=== PATIENT | male | born 1950 | race Caucasian/White ===

== ENCOUNTER 2018-08-30 20:57 | Inpatient (IN) | payer OTHER ==
[~2018-08-30] VITALS: Ht 170.2 cm; Wt 94.3 kg
[~2018-08-30 20:57] MED LIST: DEPO-TESTO200 MG/1 M IM; DILTIAZEM 24HR360 MG PO; FISH OIL 1,2001 EAC4 PO; IBUPROFEN 800800 M1 PO; SIMVASTATIN40 MG PO; TAMSULOSIN HCL0.4 MG PO
[2018-08-30 20:59] VITALS: BP 224/106
[2018-08-30] MEDS ORDERED: METOPROLOL SUCC50 MG PO (21:07)
[2018-08-30] MEDS ORDERED: OMEPRAZOLE40 MG PO (21:08)
[2018-08-30] MEDS ORDERED: METFORMIN HCL500 MG PO (21:09)
[2018-08-30] MEDS ORDERED: ASPIR-TRIN325 MG PO (21:11)
[2018-08-30 21:16] LABS: ABSOLUTE BASOPHILS 0.1 thou/uL (0.0-0.2); ABSOLUTE EOSINOPHILS 0.2 thou/uL (0.0-0.7); ABSOLUTE LYMPHOCYTES 2.7 thou/uL (0.8-5.3); ABSOLUTE MONOCYTES 1.1 thou/uL (0.0-1.2); ABSOLUTE NEUTROPHILS 9.2 thou/uL (1.6-8.1); BASOPHILS 0.8 %; EOSINOPHILS 1.3 %; HEMATOCRIT 45.7 % (42.0-52.0); HEMOGLOBIN 15.1 gm/dL (14.0-18.0); LYMPHOCYTES 20.2 %; MCH 31.2 pg (26.0-34.0); MCHC 33.1 g/dL (28.0-37.0); MCV 94.3 fL (80.0-100.0); MONOCYTES 8.2 %; MPV 8.4 fl. (7.2-11.1); NUCLEATED RBCS 0 /100WBC; PLATELET COUNT* 354 thou/uL (150-400); POLYS 69.5 %; RBC 4.85 mil/uL (4.50-6.00); RDW-CV 14.6 % (10.5-14.5); WBC 13.2 thou/uL (4.0-11.0)
[2018-08-30 21:24] LABS: ANION GAP 15 mmol/L (7-16); BUN 11 mg/dL (7-18); CALCIUM 8.4 mg/dL (8.5-10.1); CHLORIDE 105 mmol/L (98-107); CO2 22 mmol/L (21-32); CREATININE 0.9 mg/dL (0.6-1.3); GLUCOSE 141 mg/dL (70-99); POTASSIUM 3.6 mmol/L (3.5-5.1); SODIUM 142 mmol/L (136-145)
[2018-08-30 21:26] LABS: PROTIME 10.4 Seconds (9.20-11.50)
[2018-08-30 21:35] LABS: ALBUMIN 3.7 g/dL (3.4-5.0); ALKALINE PHOSPHATASE 79 U/L (46-116); NT-PRO BRAIN NAT PEPTIDE 4812 pg/mL (<300); SGOT 17 U/L (15-37); SGPT 24 U/L (30-65); TOTAL BILIRUBIN 0.3 mg/dL (<0.1-1.0); TOTAL PROTEIN 7.7 g/dL (6.4-8.2); TROPONIN-I LEVEL <0.06 ng/mL (<0.06)
[2018-08-30 21:48] LABS: INFLUENZA A ANTIGEN None Detected (None Detect); INFLUENZA B ANTIGEN None Detected (None Detect)
[2018-08-30 23:54] LABS: URINE BILIRUBIN NEGATIVE (Negative); URINE BLOOD NEGATIVE (Negative); URINE CLARITY CLEAR; URINE COLOR YELLOW; URINE GLUCOSE-RANDOM TRACE (Negative); URINE KETONES NEGATIVE (Negative); URINE LEUKOCYTES-REFLEX NEGATIVE (Negative); URINE NITRITE-REFLEX NEGATIVE (Negative); URINE PROTEIN 2+ (Negative); URINE SPECIFIC GRAVITY 1.015 (1.005-1.030); URINE UROBILINOGEN 0.2 E.U./dl (0.2-1.0)
[2018-08-31 00:01] VITALS: BP 133/54
[2018-08-31 00:02] LABS: BACTERIA-REFLEX None Seen /HPF (None Seen); CASTS None Seen /LPF (None Seen); CRYSTALS None Seen /LPF (None Seen); MUCUS 0-3 Light strn/LPF (None Seen); SQUAMOUS NONE SEEN /LPF (0-3); URINE RBC None Seen /HPF (0-2); URINE WBC-REFLEX 0-5 Rare /HPF (0-5)
[2018-08-31 00:19] VITALS: BP 123/72
[2018-08-31] MEDS ORDERED: METFORMIN HCL500 MG PO (00:39)
[2018-08-31] MEDS ORDERED: TESTOSTERO200 MG/1 M IM (00:41)
[2018-08-31] MEDS ORDERED: TRAMADOL 50 MG50 MG PO (00:42)
[2018-08-31] MEDS ORDERED: MOBIC15 MG PO (00:46)
[2018-08-31] MEDS ORDERED: PROSCAR 5MG TABL5 MG PO (00:46)
[2018-08-31 07:30] VITALS: BP 139/70
[2018-08-31 12:00] VITALS: BP 133/62
--- NOTE | 2018-08-31 12:17 | EKG ---
[place] [address] ELECTROCARDIOGRAM REPORT Name: SILVER OLIVIA Room: [place] [address] ADM IN M.R.#: [id number] Admission: 08/30/18 Attend Phys: Meliton Gregory MD Discharge: Date of : 52 Report #: [id number] THIS REPORT FOR: //name// [facility] ED Test Date: 2018-08-30 Test Time: 21:39:30 Pat Name: SILVER OLIVIA Department: Room: [facility] Gender: M Data Entry Analyst: [facility] : 1950 Requested By: Kamille Pascual Order Number: [id number] MD: Chandana Browne Measurements Intervals [place] Rate: 97 P: 54 RI: 190 QRS: -47 QRSD: 126 T: 120 QT: 380 QTc: 483 Interpretive Statements Sinus rhythm Probable left atrial enlargement LVH with IVCD, LAD and secondary repol abnrm ST elevation suggests acute pericarditis Borderline prolonged QT interval Compared to ECG 10/28/2006 08:47:39 Intraventricular conduction delay now present Left ventricular hypertrophy now present Early repolarization now present ST (T wave) deviation now present Sinus arrhythmia no longer present Electronically Signed On 08-31-2018 12:17:14 TUMBLER PLATER by Chandana Browne [email or web address] <ELECTRONICALLY SIGNED> By: Chandana Browne MD, [facility] 08/31/18 1217 38 38 Chandana Browne MD, FAC /EPI
[2018-08-31 16:00] VITALS: BP 144/70
[2018-08-31 20:30] VITALS: BP 155/68
[2018-09-01] VITALS: BP 148/82
[2018-09-01 04:00] VITALS: BP 142/77
[2018-09-01 04:05] LABS: HEMATOCRIT 39.5 % (42.0-52.0); MCH 31.4 pg (26.0-34.0); MCHC 33.2 g/dL (28.0-37.0); MCV 94.6 fL (80.0-100.0); MPV 8.7 fl. (7.2-11.1); RBC 4.17 mil/uL (4.50-6.00); RDW-CV 14.7 % (10.5-14.5); WBC 11.9 thou/uL (4.0-11.0)
[2018-09-01 04:12] LABS: HEMOGLOBIN 13.1 gm/dL (14.0-18.0)
[2018-09-01 04:13] LABS: CALCIUM 8.5 mg/dL (8.5-10.1); CREATININE 0.7 mg/dL (0.6-1.3); MAGNESIUM 2.2 mg/dL (1.8-2.4); POTASSIUM 3.5 mmol/L (3.5-5.1)
[2018-09-01 08:10] VITALS: BP 163/96
--- NOTE | 2018-09-01 13:36 | CON ---
[address] [address] CONSULTATION Name: SILVER OLIVIA Room: [address] IN .R.#: [id number] Admission: 08/30/18 Attend Phys: Meliton Gregory MD Discharge: Date of : 52 Report #: [id number] THIS REPORT FOR: //name// CC: Carmelo Gregory REASON FOR CONSULTATION: Respiratory failure, COPD. HISTORY OF PRESENT ILLNESS: This is a 67-year-old male patient with a background history of smoking and history of COPD, on albuterol inhaler as needed. Also a couple of weeks ago, he was given the new inhaler Trelegy, although he did not use it. He is not on any oxygen at home. He has history also of myocardial infarction a few years ago. He follows Dr. Jennings from Cardiology. He told me he was doing fairly well until around 3 days ago when he woke up from sleep on Saturday with some increased shortness of breath. Slowly his breathing got worse during the day and at night, he developed a sense of shortness of breath while sitting. He was not able to talk even on the phone. He just used one word, yes and no, that was associated with wheezes and cough and he felt "my lung is filling up with something." He has a 40-pack history of smoking and he slowed down for the last 4 years. He presented to the Emergency Room, found to have increased vascular congestion and picture of congestive heart failure. He was given a dose of IV Lasix and admitted. Over the course of hospitalization, his O2 needs improved slowly and this morning, he was on room air. He still feels some shortness of breath with ambulation, but reporting significant improvement. He does not have any wheezing anymore. His cough is minimal and he is not producing any sputum. He denied any sick contact or recent travel. He denied any lower extremity edema or pain or calf tenderness. PAST MEDICAL HISTORY: Include coronary artery disease, hypertension, cervical spine stenosis with radiculopathy, history of VT and stent back in 2002, hyperlipidemia and COPD, although he is not on oxygen. PAST SURGICAL HISTORY: Knee scope, vasectomy. SOCIAL HISTORY: He has a 95-blwp-hlnt history of smoking. He slowed down on her smoking for the last 4 years, according to ____ he smoked here and there. He drinks alcohol once a week. No excessive alcohol use. No drug abuse. HOME MEDICATIONS: He is on Zocor, metoprolol, omeprazole, aspirin, metformin, testosterone, tramadol, meloxicam, finasteride and ibuprofen in addition to Trelegy that he did not use, but he also has albuterol that he uses couple to 3 times a week. REVIEW OF SYSTEMS: Twelve-point review of systems was reviewed with the patient and negative other [place] [address] CONSULTATION Name: NESILVER Room: [address] IN [facility]#: [id number] Admission: 08/30/18 Attend Phys: Meliton Gregory MD Discharge: Date of : 52 Report #: [id number] PHYSICAL EXAMINATION: VITAL SIGNS: Today, he is on room air with saturation 96%. His blood pressure is 163/96, pulse rate of 83, temperature 36.7. GENERAL: The patient is sitting in bed. Speaks in full sentences, no distress. HEENT: Head is normocephalic, atraumatic. Pupils reactive to light, not pale, not jaundiced. External ear looks healthy and normal. Oral cavity, moist mucous membrane with Mallampati of 2. NECK: Full range of movement, nontender, no palpable lymph node. CHEST: Diminished air movement bilaterally. No definite wheezes, no crackles, no rhonchi. HEART: S1, S2, no murmur. ABDOMEN: Benign, soft, lax, nontender, positive bowel sounds. No masses felt. No rigidity. EXTREMITIES: Lower extremities: No edema, no calf tenderness. SKIN: Normal for age and race. LYMPHATICS: No swollen lymph node. PSYCHIATRIC: Mood and affect appropriate. Good insight and judgment. NEUROLOGIC: Moving all 4 extremities spontaneously. No focal weakness. Cranial nerves grossly normal. LABORATORY DATA: He had a chest x-ray in the ER that demonstrated bilateral lower lobe infiltrate versus atelectasis and signs of vascular congestion. His CT of the chest was negative for PE, but demonstrated infiltrates, mostly on the right lower lobe, but also seen bilateral lung and signs of vascular congestion with bilateral pleural effusion. His white blood count is 13.2, hemoglobin 15.1, platelets 354. His creatinine is 0.7 with a BUN of 15, chloride 103, potassium 3.5, sodium 140. His BNP was 4812. INR of 1. D-dimer was elevated and influenza A and B screen was negative. IMPRESSION: 1. Acute hypoxic respiratory failure. 2. Pulmonary infiltrate. 3. Congestive heart failure. 4. Pulmonary edema. 5. Bilateral pleural effusion. 6. Coronary artery disease. 7. Possible pneumonia. 8. Chronic obstructive pulmonary disease. PLAN: At this point, I agree with the cardiac evaluation. He needs an echocardiogram. I would recommend to continue the nebulization treatment. He is currently on steroids IV twice a day, would continue those for now to optimize his lung function and taper at the time [place] [address] CONSULTATION Name: SILVER OLIVIA Room: [address] IN .R.#: [id number] Admission: 08/30/18 Attend Phys: Meliton Gregory MD Discharge: Date of : 52 Report #: [id number] antibiotic as you are doing at this point. He needs a followup chest imaging. We will follow along with you. Thank you for the consult. I did discuss with the patient the fact that he has a pleural effusion, is most likely related to his congestive heart failure and typically the treatment as directed toward underlying disease. Usually, we do not proceed with thoracentesis till optimizing his medical management. Thank you for the consult. <ELECTRONICALLY SIGNED> By: Alva Gimenez MD 09/01/18 1336 1024 1150Alva Gimenez MD /nt
--- NOTE | 2018-09-01 14:15 | 2DMMODE ---
[place] [address] 2 D/M-MODE ECHOCARDIOGRAM Name: SILVER OLIVIA Room: [address] IN [facility]#: [id number] Admission: 08/30/18 Attend Phys: Meliton Gregory, Discharge: Date of : 52 Date of Service: 09/01/18 1415 Report #: [id number] THIS REPORT FOR: //name// APPROVED REPORT Study performed: 09/01/2018 10:13:22 EXAM: Comprehensive 2D, Doppler, and color-flow Echocardiogram Patient Location: In-Patient Room #: [facility] Status: routine BSA: 1.99 HR: 84 bpm BP: 167/86 mmHg Other Information Study Quality: Good Indications Dyspnea 2D Dimensions IVSd: 14.15 (7-11mm) LVOT Diam: 20.01 (18-24mm) LVDd: 58.55 mm PWd: 12.37 (7-11mm) Ascending Ao: 26.98 (22-36mm) LVDs: 45.69 (25-40mm) Aortic Root: 27.79 mm Volumes Left Atrial Volume (Systole) LA ESV Index: 31.10 mL/m2 Aortic Valve AoV Peak Sadiq.: 2.29 m/s AO Peak Gr.: 20.90 mmHg LVOT Max P.67 mmHg AO Mean Gr.: 12.80 mmHg LVOT Mean P.27 mmHg LVOT Max V: 0.82 m/s AO V2 VTI: 44.61 cm LVOT Mean V: 0.52 m/s SUSANA (VTI): 0.92 cm2 LVOT V1 VTI: 13.03 cm Mitral Valve E/A Ratio: 2.64 MV Decel. Time: 132.60 ms MV E Max Sadiq.: 1.38 m/s MV PHT: 38.46 [place] [address] 2 D/M-MODE ECHOCARDIOGRAM Name: SILVER OLIVIA Room: [address] IN [facility]#: [id number] Admission: 08/30/18 Attend Phys: Meliton Gregory, Discharge: Date of : 52 Date of Service: 09/01/18 1415 Report #: [id number] MVA (PHT): 5.72 cm2 TDI E/Lateral E': 17.25 E/Medial E': 23.00 Medial E' Sadiq.: 0.06 m/s Lateral E' Sadiq.: 0.08 m/s Pulmonary Valve PV Peak Sadiq.: 1.04 m/s PV Peak Gr.: 4.34 mmHg Tricuspid Valve RAP Estimate: 5.00 mmHg TR Peak Gr.: 29.71 mmHg RVSP: 34.71 mmHg PA Pressure: 34.71 mmHg Left Ventricle Left ventricle is mildly dilated. There is severe diffuse hypokinesis of left ventricular wall motion. Borderline concentric left ventricular hypertrophy. Left ventricular ejection fraction is severely decreased. LVEF is 25%. The left ventricular diastolic function is normal. Right Ventricle The right ventricle is normal size. The right ventricular systolic function is normal. Atria The left atrium size is normal. The right atrium size is normal. Aortic Valve Aortic valve is mildly calcified. No aortic regurgitation is present. Mild aortic stenosis. Mitral Valve The mitral valve is normal in structure. Mild mitral regurgitation. No evidence of mitral valve stenosis. Tricuspid Valve The tricuspid valve is normal in structure. Mild tricuspid regurgitation. Pulmonic Valve The pulmonary valve is normal in structure. There is no pulmon[place] [address] 2 D/M-MODE ECHOCARDIOGRAM Name: SILVER OLIVIA Room: [address]#: [id number] Admission: 08/30/18 Attend Phys: Meliton Gregory, Discharge: Date of : 52 Date of Service: 09/01/18 1415 Report #: [id number] Great Vessels The aortic root is normal in size. IVC is normal in size and collapses >50% with inspiration. Pericardium There is no pericardial effusion. <Conclusion> Left ventricle is mildly dilated. Borderline concentric left ventricular hypertrophy. Left ventricular ejection fraction is severely decreased. LVEF is 25%. The left ventricular diastolic function is normal. The right ventricle is normal size. The left atrium size is normal. Aortic valve is mildly calcified. No aortic regurgitation is present. Mild aortic stenosis. The mitral valve is normal in structure. Mild mitral regurgitation. The tricuspid valve is normal in structure. Mild tricuspid regurgitation. IVC is normal in size and collapses >50% with inspiration. There is no pericardial effusion. There is severe diffuse hypokinesis of left ventricular wall motion. <ELECTRONICALLY SIGNED> By: Matias Vail MD, FACC 09/01/18 1415 1415 1415 Matias Vail MD, FACC /INF
[2018-09-01 16:00] VITALS: BP 133/75
[2018-09-01 20:33] VITALS: BP 139/83
[2018-09-02 04:14] LABS: HEMATOCRIT 40.5 % (42.0-52.0); HEMOGLOBIN 13.3 gm/dL (14.0-18.0); MCH 31.2 pg (26.0-34.0); MCV 94.6 fL (80.0-100.0); MPV 8.8 fl. (7.2-11.1); NUCLEATED RBCS 0 /100WBC; PLATELET COUNT* 293 thou/uL (150-400); RBC 4.28 mil/uL (4.50-6.00); RDW-CV 14.4 % (10.5-14.5); WBC 9.8 thou/uL (4.0-11.0)
[2018-09-02 04:48] LABS: ALBUMIN 3.3 g/dL (3.4-5.0); CALCIUM 8.6 mg/dL (8.5-10.1); CREATININE 0.8 mg/dL (0.6-1.3); TOTAL BILIRUBIN 0.4 mg/dL (<0.1-1.0); TOTAL PROTEIN 7.1 g/dL (6.4-8.2)
[2018-09-02 05:02] LABS: POTASSIUM 4.5 mmol/L (3.5-5.1)
[2018-09-02 07:05] LABS: ABSOLUTE MONOCYTES 0.1 thou/uL (0.0-1.2); ABSOLUTE NEUTROPHILS 8.7 thou/uL (1.6-8.1); ANISOCYTOSIS 1+; PLATELET ESTIMATE ADEQUATE; POIKILOCYTOSIS 1+
[2018-09-02 07:30] VITALS: BP 124/76
[2018-09-02 16:00] VITALS: BP 142/74
--- NOTE | 2018-09-02 16:26 | CON ---
[address] [address] CONSULTATION Name: SILVER OLIVIA Room: [address] IN M.R.#: [id number] Admission: 08/30/18 Attend Phys: Meliton Gregory MD Discharge: Date of : 52 Report #: [id number] THIS REPORT FOR: //name// CC: Carmelo Gregory DATE OF SERVICE: 09/01/2018 LOCATION: The patient in room 105. Thank you for allowing me to see the patient in cardiovascular assessment. HISTORY OF PRESENT ILLNESS: As you know, he is a very pleasant 67-year-old male with a history of tobacco habituation and associated chronic obstructive pulmonary disease. He also has a history of coronary artery disease status post remote myocardial infarction and stenting in 2002. During the preceding several days, he noted an increase in shortness of breath, which worsened markedly on Saturday evening to the point where he was markedly dyspneic and mildly diaphoretic. He denied associated chest pain. He was brought to the [facility] at that time and was felt to have acute respiratory and cardiac failure with a central volume access and an exacerbation of his bronchoconstrictive pulmonary disease. The patient was treated with steroids and IV bronchodilators as well as antibiotics and IV Lasix. Since then, there has been a gradual improvement in his dyspnea to the point where he is nearly normal, though he feels mildly dyspneic compared to his norm. There has never been chest discomfort, no enzymatic evidence to suggest acute myocardial injury. He has been treated with multiple antibiotics, steroids, and parenteral diuresis. He has been continued on beta blockade in the form of Toprol-XL 50 mg daily. He was initially hypertensive in the ER, the pressure is gradually diminished to high normal range. PRIOR MEDICATIONS: Have included diltiazem, ibuprofen, meloxicam, metformin, simvastatin, Cialis, and tramadol. He has also been on a beta zaheer in the form of Toprol-XL. SOCIAL HISTORY: The patient has a significant [place] [address] CONSULTATION Name: SILVER OLIVIA Room: [address] IN [facility]#: [id number] Admission: 08/30/18 Attend Phys: Meliton Gregory MD Discharge: Date of : 52 Report #: [id number] PAST MEDICAL HISTORY: Remarkable for chronic obstructive pulmonary disease with prior significant cigarette smoking history, coronary artery disease, hyperlipidemia and modest number of PVCs. REVIEW OF SYSTEMS: Remarkable for the following: PULMONARY: He notes chronic dyspnea and occasional wheezing with a significant prior cigarette smoking history. CARDIAC: There is a history of prior myocardial infarction and prior stenting in 2002. PHYSICAL EXAMINATION: GENERAL: Demonstrates a middle-aged male in no acute distress. VITAL SIGNS: Blood pressure 147/72, pulse rate is 84 and respirations are 18 per minute. NECK: Jugular venous pressure is mildly elevated. CHEST: Reveals slightly decreased breath sounds diffusely with a prolonged expiratory phase; no wheezing is noted. CARDIAC: Reveals normal first and second heart sounds with a soft systolic murmur. ABDOMEN: Soft and nontender. EXTREMITIES: Without edema with intact peripheral pulses and good distal perfusion. There are no deformity or arthritic changes. There is no scleral icterus. HEENT: Oral mucosa is moist and dry. Electrocardiogram reveals sinus rhythm, intraventricular conduction delay with left axis deviation, possible left ventricular hypertrophy. Chemistries remarkable for an NT-BNP 4812. Hemoglobin 13.1, white blood cell count 11,900 with 288,000 platelets. Sodium 140, potassium 3.5, BUN 15, creatinine 0.7. Troponin less than 0.06. Initial NT-BNP 4812. Glucose is 141 and 163. Chest radiograph today demonstrates mild pulmonary venous hypertension without evidence for significant heart failure. Echocardiogram is reviewed and demonstrates mild left ventricular cavitary dilatation with severe impairment in global left ventricular systolic function, estimated ejection fraction being 25% with diffuse hypokinesis of left ventricle wall motion. There is mild aortic sclerosis without stenosis and mild mitral regurgitation is noted. IMPRESSION: 1. Acute on chronic congestive heart failure, which is predominantly systolic. 2. Chronic obstructive pulmonary disease with exacerbation. 3. [place] [address] CONSULTATION Name: IVANIASILVER PRASAD Room: [address] IN [facility]#: [id number] Admission: 08/30/18 Attend Phys: Meliton Gregory MD Discharge: Date of : 52 Report #: [id number] 4. Coronary artery disease, status post prior myocardial infarction and prior stenting. RECOMMENDATIONS: 1. Continued modest diuresis in the form of Lasix 40 mg daily. 2. Would recommend an outpatient modification in his heart failure medicines with a change from metoprolol succinate to carvedilol with commencement of Entresto with low dosage; we plan to do this as an outpatient after discussing with Dr. Jennings. 3. Continued therapy directed at his bronchoconstrictive pulmonary disease. The above issues were discussed in detail with the patient and we will review the case with Dr. Jennings, who follows the patient on a long-term basis. <ELECTRONICALLY SIGNED> By: Matias Vail MD, FACC 09/02/18 1626 1521 1822Matias Vail MD, FACC /nt
--- NOTE | 2018-09-02 16:51 | EKG ---
[place] [address] ELECTROCARDIOGRAM REPORT Name: SILVER OLIVIA Room: [address] ADM IN M.R.#: [id number] Admission: 08/30/18 Attend Phys: Meliton Gregory MD Discharge: Date of : 52 Report #: [id number] THIS REPORT FOR: //name// [facility] Test Date: 2018-09-02 Test Time: 15:48:21 Pat Name: SILVER OLIVIA Department: Room: [address] Gender: M Handbag Stitcher: NICKO : 1950 Requested By: Matias Vail Order Number: [id number] Reading MD: Sly Jennings Measurements Intervals [place] Rate: 81 P: 39 [place]: 169 QRS: -45 QRSD: 121 T: 142 QT: 408 QTc: 474 Interpretive Statements Sinus rhythm Probable left atrial enlargement LVH with IVCD, LAD and secondary repol abnrm Anterior ST elevation, probably due to LVH Compared to ECG 08/30/2018 21:39:30 No significant changes Electronically Signed On 09-02-2018 16:51:32 DELINQUENT NOTICE MACHINE OPERATOR by Sly Jennings [email or web address] <ELECTRONICALLY SIGNED> By: Sly Jennings MD, FACC 09/02/18 1651 1548 1548 Sly Jennings MD, FACC /EPI
[2018-09-02 20:00] VITALS: BP 153/84
[2018-09-03] VITALS (13 sets, daily range): BP systolic 119–157; BP diastolic 62–85
[2018-09-03 04:21] LABS: CALCIUM 8.9 mg/dL (8.5-10.1); CREATININE 0.8 mg/dL (0.6-1.3); POTASSIUM 4.1 mmol/L (3.5-5.1)
[2018-09-04] VITALS: BP 139/81
[2018-09-04 04:00] VITALS: BP 143/93
[2018-09-04 04:07] LABS: CREATININE 0.8 mg/dL (0.6-1.3); POTASSIUM 4.2 mmol/L (3.5-5.1)
[2018-09-04 07:55] VITALS: BP 143/97
[2018-09-04 15:45] VITALS: BP 137/78
[2018-09-04 20:00] VITALS: BP 129/81
[2018-09-05 08:40] VITALS: BP 120/88
[2018-09-05 08:55] VITALS: BP 120/88
--- NOTE | 2018-09-05 11:32 | CARD ---
[address] [address] CARDIAC CATH REPORT Name: SILVER OLIVIA Room: [address] IN [facility]#: [id number] Admission: 08/30/18 Attend Phys: Meliton Gregory MD Discharge: Date of : 52 Report #: [id number] THIS REPORT FOR: //name// APPROVED REPORT Study performed: 09/03/2018 12:42:50 Patient Details Patient Status: In-Patient Room #: 105 The patient is a 67 year-old male Event Personnel Mtaias Vail Panel Assembler, Celia Amezcua, Artemio Mirza Parks, Tina RN Filter Changing Technician Procedures Performed Art Access - R radial artery , Selective Right and Left Coronary AngiographyLeft Heart Cath w/or w/o Coronaries [id number] [facility] , Left Ventriculogram Indication Cardiomyopathy Risk Factors Hypercholesterolemia, Hypertension Previous Procedures/Diagnoses Previous PCI Admission/Lab Medications/Medications given during procedure Heparin Unfract. Procedure Narrative The patient was brought electively to the Cardiac Catheterization Laboratory and was prepped and draped in a sterile manner. The right wrist was infiltrated with 2% Lidocaine subcutaneous anesthesia. A Slender Glidesheath sheath was inserted into the right radial artery. Coronary angiography was performed using coronary diagnostic catheters. The right coronary system was accessed and visualized with a 3DRC 6fr catheter. The left coronary system was accessed and visualized with a 6fr DxTerity TRA catheter. The left ventricle was accessed and visualized with a PC: Pig 6fr catheter. Left ventricular/Aortic Valve gradient assessed via catheter pullback. Left ventriculogram was performed in ELENA projection. The patient tolerated the procedure well and [place] [address] CARDIAC CATH REPORT Name: SILVER OLIVIA Aishwarya Room: [address] IN [facility]#: [id number] Admission: 08/30/18 Attend Phys: Meliton Gregory MD Discharge: Date of : 52 Report #: [id number] associated with the procedure. Intraoperative Conscious Sedation Sedation start time: 13:25 Case end Time: 13:49 Fentanyl 25 mcg Versed 2 mg Fluoro Time: 7.2 minutes Dose: DAP 90117 cGycm2 1270.53 mGy Contrast Type and Amount: Visipaque 100 ml Coronary Angiography The patient's coronary anatomy is left dominant. Diagnostic Cath Left Main 0% narrowing LAD 30 Percent proximal with 40% mid LAD narrowing and 30% narrowing of the proximal portion of the first diagonal branch Circumflex 40% mid vessel narrowing and 40% narrowing of the distal circumflex Right Coronary Small nondominant vessel with widely patent proximal stent Left Ventriculography The left ventricle is moderately dilatedmoderately dilated in size with contractility. The left ventricular ejection fraction is estimated to be 25%. There is no mitral insufficiency. There is severe diffuse hypokinesis of left ventricular wall motion Hemodynamics The aortic pressure is 122/72 mmHg with a mean of mmHg. The left ventricular pressure is 130/16 mmHg with a mean of mmHg. The left ventricular end diastolic pressure is 41 mmHg. There was no gradient across the aortic valve upon pullback. Conclusion #1 modest coronary artery disease characterized by the following: A 0% left main coronary artery narrowing B 30% proximal 40% mid LAD narrowing with 30% proximal first diagonal narrowing C nondominant right coronary artery with a widely [place] [address] CARDIAC CATH REPORT Name: SILVER OLIVIA Room: [address] IN ..#: [id number] Admission: 08/30/18 Attend Phys: Meliton Gregory MD Discharge: Date of : 52 Report #: [id number] Large dominant circumflex coronary artery with 40% mid and distal narrowings #2 moderate left ventricular cavitary dilatation with severe reduction in global left ventricular systolic function, estimated ejection fraction 25% #3 severe elevation of left ventricular end-diastolic pressure at rest Recommendations Aggressive Medical Therapy Diagnostic Cath Approved by: Matias Vail MD Date/Time: 09/05/2018 11:31:57 <ELECTRONICALLY SIGNED> By: Matias Vail MD, [facility] 09/05/18 1132 1132 1132Jotana Vail MD, FACC /INF
[2018-09-05] MEDS ORDERED: POTASSIUM20 PO (12:29)
[2018-09-05] MEDS ORDERED: PREDNISONE 10 M10 MG PO (12:32)
[2018-09-05] MEDS ORDERED: CEFDINIR300 MG PO (13:01)
[2018-09-05] MEDS ORDERED: LASIX 40 MG TAB40 M2 PO (13:03)
[2018-09-05] MEDS ORDERED: FLONASE 0.05%50 MCG NASAL (13:03)
[2018-09-05] MEDS ORDERED: GUAIFENESIN ER600 MG PO (13:05)
[2018-09-05] MEDS ORDERED: COZAAR 25 MG TA25 M2 PO (13:06)
== END 2018-09-05 16:00 | disposition home or self-care (01) | DRG 286 ==
LOC: M.ERS 20:57 → M.2W 22:54 → M.TBA-ER 22:54 → M.ORTHSURG 22:54 → M.2W 23:34 → M.ORTHSURG 09-01 07:51
PROVIDERS: Emergency Medicine; Family Medicine; Internal Medicine
PROC: 4A023N7 Measurement of Cardiac Sampling and Pressure, Left Heart, Percutaneous Approach (ICD-10-PCS; principal; 2018-09-03)
PROC: B211YZZ Fluoroscopy of Multiple Coronary Arteries using Other Contrast (ICD-10-PCS; principal; 2018-09-03)
PROC: B215YZZ Fluoroscopy of Left Heart using Other Contrast (ICD-10-PCS; principal; 2018-09-03)
DX: I11.0 Hypertensive heart disease with heart failure (principal); J15.6 Pneumonia due to other Gram-negative bacteria; J96.01 Acute respiratory failure with hypoxia; J44.1 Chronic obstructive pulmonary disease with (acute) exacerbation; J44.0 Chronic obstructive pulmonary disease with (acute) lower respiratory infection; I25.10 Atherosclerotic heart disease of native coronary artery without angina pectoris; I50.43 Acute on chronic combined systolic (congestive) and diastolic (congestive) heart failure; I42.9 Cardiomyopathy, unspecified; E78.00 Pure hypercholesterolemia, unspecified; E78.5 Hyperlipidemia, unspecified; I16.0 Hypertensive urgency; I27.81 Cor pulmonale (chronic); Z98.52 Vasectomy status; I25.2 Old myocardial infarction; Z95.5 Presence of coronary angioplasty implant and graft

== ENCOUNTER → 2019-07-03 | Outpatient (CLI) | payer OTHER ==
[~2019-07-03] MED LIST changes: +ASPIR-TRIN325 MG PO; +CEFDINIR300 MG PO; +COZAAR 25 MG TA25 M2 PO; +FLONASE 0.05%50 MCG NASAL; +GUAIFENESIN ER600 MG PO; +LASIX 40 MG TAB40 M2 PO; +METFORMIN HCL500 MG PO; +METOPROLOL SUCC50 MG PO; +MOBIC15 MG PO; +OMEPRAZOLE40 MG PO; +POTASSIUM20 PO; +PREDNISONE 10 M10 MG PO; +PROSCAR 5MG TABL5 MG PO; +TESTOSTERO200 MG/1 M IM; +TRAMADOL 50 MG50 MG PO
== END ==
LOC: M.MRI 08:28
DX: S83.282A Other tear of lateral meniscus, current injury, left knee, initial encounter (principal); S83.512A Sprain of anterior cruciate ligament of left knee, initial encounter; M17.12 Unilateral primary osteoarthritis, left knee; X58.XXXA Exposure to other specified factors, initial encounter; Y93.89 Activity, other specified; Y92.89 Other specified places as the place of occurrence of the external cause; Y99.8 Other external cause status

== ENCOUNTER 2019-07-28 06:34 | Inpatient (IN) | payer OTHER, SELFPAY ==
[2019-07-16 09:05] LABS: URINE BILIRUBIN NEGATIVE (Negative); URINE BLOOD NEGATIVE (Negative); URINE CLARITY CLEAR; URINE COLOR YELLOW; URINE GLUCOSE-RANDOM NEGATIVE (Negative); URINE KETONES NEGATIVE (Negative); URINE LEUKOCYTES-REFLEX NEGATIVE (Negative); URINE NITRITE-REFLEX NEGATIVE (Negative); URINE PROTEIN NEGATIVE (Negative); URINE SPECIFIC GRAVITY <= 1.005 (1.005-1.030); URINE UROBILINOGEN 0.2 E.U./dl (0.2-1.0)
[2019-07-16 09:07] LABS: HEMATOCRIT 41.1 % (42.0-52.0); HEMOGLOBIN 14.1 gm/dL (14.0-18.0); MCH 33.3 pg (26.0-34.0); MCHC 34.4 g/dL (28.0-37.0); MCV 96.7 fL (80.0-100.0); RBC 4.25 mil/uL (4.50-6.00); RDW-CV 13.7 % (10.5-14.5); WBC 6.3 thou/uL (4.0-11.0)
[2019-07-16 09:13] LABS: PROTIME 10.3 Seconds (9.20-11.50)
[2019-07-16 09:17] LABS: ALBUMIN 4.4 g/dL (3.4-5.0); CALCIUM 9.5 mg/dL (8.5-10.1); CREATININE 0.8 mg/dL (0.6-1.3); POTASSIUM 4.5 mmol/L (3.5-5.1); TOTAL BILIRUBIN 0.5 mg/dL (<0.1-1.0); TOTAL PROTEIN 7.8 g/dL (6.4-8.2)
--- NOTE | 2019-07-16 13:25 | EKG ---
[place] [address] ELECTROCARDIOGRAM REPORT Name: REZAKINGSILVER KENDRICK Room: PRE IN [facility]#: [id number] Admission: Attend Phys: Ezio Sharma Discharge: Date of : 52 Report #: [id number] THIS REPORT FOR: //name// [facility] Test Date: 2019-07-16 Test Time: 09:15:18 Pat Name: SILVER OLIVIA Department: Room: Gender: M Rn Medical Inpatient Services: : 1950 Requested By: Han Melton Order Number: [id number] Reading MD: Sly Jennings Measurements Intervals [place] Rate: 53 P: 64 [place]: 263 QRS: -57 QRSD: 138 T: -11 QT: 433 QTc: 407 Interpretive Statements Sinus rhythm with first-degree AV block Premature ventricular contractions Left bundle branch block Compared to ECG 09/02/2018 15:48:21 Ventricular premature complex(es) now present First degree AV block now present Left bundle-branch block now present Electronically Signed On 07-16-2019 13:25:40 CDT by Sly Jennings [email or web address] <ELECTRONICALLY SIGNED> By: Sly Jennings MD, FACC 07/16/19 1325 4 4 Sly Jennings MD, FACC /EPI
[~2019-07-28] VITALS: Ht 170.2 cm; Wt 85.3 kg
[~2019-07-28 06:34] MED LIST changes: +ENTRESTO 97 MG1 EACH PO; +ESCITALOPRAM OX10 MG PO; +FLOMAX0.4 MG PO; +IBUPROFEN 200200 M1 PO; +LIPITOR40 MG PO; +METOPROLOL SUC200 MG PO; +OMEPRAZOLE 20 M20 M1 PO; +SPIRONOLACTONE25 M1 PO; +TYLENOL325 MG PO
[2019-07-28 09:35] VITALS: BP 163/88
[2019-07-28 15:20] VITALS: BP 127/69
--- NOTE | 2019-07-28 15:46 | NUR ---
ASSESSMENT COMPLETE. PT ADMITTED TO ROOM 305 AT 1445. PT HAD LEFT TOTAL KNEE. PT IS DROWSY, ORIENTED X4. PT DENIES NEED FOR PAIN MEDICATION AT THIS TIME. CAPNO IN PLACE, 2L PER NC. VSS. POLAR PACK IN PLACE. IV IN LEFT FA, SALINE LOCKED. SEE ASSESSMENT AND VITALS FOR OTHER DETAILS. CALL LIGHT WITHIN REACH, WILL CONTINUE PLAN OF CARE
[2019-07-28 20:32] VITALS: BP 138/74
[2019-07-28] MEDS ORDERED: ENTRESTO 97 MG1 EACH (21:26)
[2019-07-28 23:45] VITALS: BP 128/56
[2019-07-29 04:00] VITALS: BP 127/58
[2019-07-29 04:23] LABS: HEMATOCRIT 30.3 % (42.0-52.0)
[2019-07-29 05:41] LABS: URINE BILIRUBIN NEGATIVE (Negative); URINE BLOOD NEGATIVE (Negative); URINE CLARITY CLEAR; URINE COLOR YELLOW; URINE GLUCOSE-RANDOM NEGATIVE (Negative); URINE KETONES NEGATIVE (Negative); URINE LEUKOCYTES-REFLEX NEGATIVE (Negative); URINE NITRITE-REFLEX NEGATIVE (Negative); URINE PROTEIN NEGATIVE (Negative); URINE SPECIFIC GRAVITY <= 1.005 (1.005-1.030); URINE UROBILINOGEN 0.2 E.U./dl (0.2-1.0)
--- NOTE | 2019-07-29 07:50 | NUR ---
ASSUMED CARE OF PATIENT 07/28/19 AT APPROX 1930, PT REMAINED A&OX4 THROUGHOUT SHIFT, PT ON 2L NC AND CAPNO THROUGHOUT SHIFT, PAIN MEDS REQUESTED AND GIVEN ORDERED, URINARY RETENTION NOTED - [place] INSERTED ORDERED, HEMO VAC IN PLACE, PT STATED ON CPM, ASSESSMENTS AND HOURLY ROUNDINGS COMPLETED, FALL PRECAUTIONS MAINTAINED.
[2019-07-29 08:00] VITALS: BP 133/55
--- NOTE | 2019-07-29 13:39 | NUR ---
RECIEVED O.T. EVAL AND TX ORDER. WILL DEFER TO P.T. AT THIS TIME. PLEASE ORDER FURTHER O.T. SERVICES IF NEEDED.
--- NOTE | 2019-07-29 14:23 | NUR ---
SW met with pt dtr Amara to complete initial assessment, introduce self, and SW/CM role. Pt was working with nursing. Pt dtr Amara and pt live in the same home. Pt and pt dtr interested in [facility] care at dc and then transition to OP [facility] after HH. Pt has a RW and a cane. Pt has hx of Cardiac rehab, pt has stairs at home that pt dtr wants to be sure pt would be safe managing the stairs prior to dc. SW to continue to follow to assist with safe dc planning.
[2019-07-29 16:01] VITALS: BP 107/59
--- NOTE | 2019-07-29 19:00 | NUR ---
PATIENT PLEASANT AND COOPERATIVE W/ ASSESS AND CARES THIS SHIFT. COOPERATIVE W/ THERAPIES. PATIENT STATES DOES NOT FEEL CONFIDENT GOING HOME TODAY, STATES THAT HE WOULD LIKE BETTER CONTROL OF HIS PAIN. DR FROST AND DR MEYER NOTIFIED. PATIENT STATES THAT HE WOULD LIKE TO TRY ONLY PERCOCET FOR PAIN FOR REST OF STAY TO MAKE SURE THAT HE WILL BE ABLE TO TOLERATE ONLY THAT FOR PAIN WHEN HE GOES HOME. AMBULATING IN HALLS USING FWW AND GAIT BELT W/ SBA. GAIT NOTED STEADY, SLOW. PATIENT STATES HAVING LESS PAIN WHEN HE IS UP WALKING. USING CPM AT THIS TIME. HRLY ROUNDS DONE. EATING WELL, DENIES OTHER NURSING NEEDS AT THIS TIME. HRLY ROUNDS DONE. ~TJRN
[2019-07-29 19:55] VITALS: BP 123/63
[2019-07-29 23:56] VITALS: BP 113/65
[2019-07-30 04:00] VITALS: BP 132/68
[2019-07-30 04:39] LABS: HEMATOCRIT 25.1 % (42.0-52.0); HEMOGLOBIN 8.5 gm/dL (14.0-18.0)
--- NOTE | 2019-07-30 05:41 | NUR ---
ASSUMED CARE OF PT 07/29/19 APPROX 1930, PT REMAINED A&OX4 THORUGHOUT SHIFT, PAIN MEDS REQUESTED AND GIVEN ORDERED, CPM THEARPY COMPLETED, PT SLEPT WELL THROUGH NIGHT, ASSESSMENTS AND HOURLY ROUNDINGS COMPLETEED, FALL PRECAUTIONS MAINTAINED. WILL CONTINUE TO MONITOR.
[2019-07-30 09:05] VITALS: BP 153/73
--- NOTE | 2019-07-30 11:50 | NUR ---
CM CALLED IN PTS.PRESCRIPTION FOR XARELTO WRITTEN TO HIS PHARMACY. COPAY IS $18. ANNABEL TOVAR WILL INFORM HIM OF [facility].
[2019-07-30 15:15] VITALS: BP 153/73
[2019-07-30 16:00] VITALS: BP 145/52
--- NOTE | 2019-07-30 16:24 | NUR ---
Pt to dc home with dtr today and with services to follow. Pt has needed DME. SW met with pt and discussed safe dc planning and arrangement of [facility]/pt preference. SW faxed referral and orders to [facility]. SW relayed information that pt blood thinner would be $18 copay and pt said that was reasonable for him to be able to cover that cost. Pt dtr to provide pt ride home. No other dc needs expressed. Pt plans to transition to [facility] OP PT after HH services.
[2019-07-30 16:33] VITALS: BP 153/73
[2019-07-30] MEDS ORDERED: PERCOCET 5-3251 EACH PO (16:58)
[2019-07-30] MEDS ORDERED: XARELTO10 MG PO (17:00)
--- NOTE | 2019-07-30 17:45 | NUR ---
PATIENT DISCHARGED HOME W/ HOME HEALTH SERVICES TO FOLLOW. DISCHARGE INSTRUCTIONS GIVEN, COPY OF DISCHARGE INSTRUCTIONS AND ORIG RX SCRIPTS GIVEN TO PATIENT. DISCHARGE INSTRUCTION REVIEWED DONE PER SECOND RN. PATIENT ESCORTED TO AWAITING VEHICLE W/ DTR AND NURSING PRESENT. CPM, FWW AND POLAR PACK W/ STAFF WHEN LEFT UNIT. PATIENT ALERT AND ORIENTED, PAIN CONTROLLED FOR TRANSFER HOME. TEDS ON BLE. IV CATH SITE DISCONTINUED. COTTON BALL/TAPE TO SITE. PATIENT DENIES OTHER NURSING NEEDS AT TIME OF DEPARTURE. ~TJRN
--- NOTE | 2019-08-06 08:26 | OP ---
[address] [address] OPERATIVE REPORT Name: SILVER OLIVIA Room: [address] IN M.R.#: [id number] Admission: 07/28/19 Attend Phys: Ezio Sharma Discharge: 07/30/19 Date of : 52 Report #: [id number] THIS REPORT FOR: //name// CC: Carmelo Umana DATE OF SERVICE: 07/28/2019 PREOPERATIVE DIAGNOSIS: Left knee osteoarthritis. POSTOPERATIVE DIAGNOSIS: Left knee osteoarthritis. PROCEDURE: Left total knee arthroplasty. SURGEON: Han Melton II, DO. APPRENTICE JOCKEY: KAYLEE Parker. ANESTHESIA: Per operative record. ESTIMATED BLOOD LOSS: 50 mL. ANTIBIOTICS: Per operative record. DRAINS: Medium Hemovac. COMPLICATIONS: None. CONDITION OF THE PATIENT: Stable to recovery room. BRIEF HISTORY: The patient was seen in preoperative area. Preoperative H and P was performed. Site was marked, questions were answered. Risks and benefits were discussed with the patient in detail about surgery. The patient wished to proceed, assuming all risks. DESCRIPTION OF PROCEDURE: The patient was taken to the operative suite and placed supine on the operative table, appropriate anesthesia. The patient's left knee was sterilely prepped and draped with well-padded tourniquet applied to upper thigh, which was inflated to 300 mmHg after gravity exsanguination for duration of procedure. Surgery began by midline incision. This was carried down to the subcutaneous tissues. A medial parapatellar arthrotomy was performed and carried down to bone. The patella was then everted and excess soft tissue removed from around the femur. Femoral cutting block was then applied, checked with a drop rayshawn for rotational alignment and slope, pinned in appropriate position and appropriate cuts were made. The 4-in-1 [place] [id number] OPERATIVE REPORT Name: SILVER OLIVIA Room: [address]#: [id number] Admission: 07/28/19 Attend Phys: Ezio Sharma Discharge: 07/30/19 Date of : 52 Report #: [id number] was then applied, checked with drop rayshawn for rotational alignment, pinned into appropriate position and appropriate cuts were made. Attention was then turned to the tibia. Retractors were placed. Tibial cutting block was then applied, checked for rotational alignment with the drop rayshawn and slope. This was pinned and appropriate cut was made. Excess bone was removed. Excess meniscus was removed after this. The tibial base plate was then applied, checked for rotational alignment with the drop rayshawn and pinned in appropriate position. The femur was then applied and box cut was reamed. Trial spacer was then applied and shown to have excellent flexion and extension, excellent range of motion of the knee. Attention was then turned to the patella. It was reamed in appropriate fashion and sized to appropriate size. Three peg holes were drilled and it was then trialed and showed excellent flexion, extension, excellent tracking of the patella within the groove. The trial was then removed. The tibia was punched in appropriate fashion. Bone ends were cleansed with Pulsavac irrigation and cement was mixed and applied to final implants. These were then malleted in position, held the knee in extension and compressed to allow cement to cure. Excess cement was removed using [place] and osteotome after it had been allowed to cure. The wound was then copiously irrigated, removing excess debris and the final spacer was then malleted into position. Knee was once again reduced, it was shown to have excellent flexion, extension, excellent tracking of the patella through all range of motion. Tourniquet was deflated. Hemostasis was obtained with electrocautery. Pain cocktail was injected. PRP gel sprayed throughout the internal aspects of the knee. Medium Hemovac drain was activated. The capsule was then closed with #2 FiberWire and #1 Vicryl in [id number] fashion. Skin was closed with 2-0 Vicryl and running 3-0 Monocryl. Dermabond and sterile dressing applied. Saji wrap and PolarCare applied. The patient transported to recovery room in stable condition. Counts were correct throughout the procedure. <ELECTRONICALLY SIGNED> By: Han Melton II, DO 08/06/19 0826 0851 0924Han Melton II, DO /nt
== END 2019-07-30 17:45 | disposition home health service (06) | DRG 470 ==
LOC: M.PRE → M.TBA 08:32 → M.3W 08:32 → M.PRE 10:27 → M.3W 14:44 → M.PRE 16:12 → M.3W 07-30 17:45
PROVIDERS: Orthopaedic Surgery; ADMIT Internal Medicine
PROC: 0SRD0J9 Replacement of Left Knee Joint with Synthetic Substitute, Cemented, Open Approach (ICD-10-PCS; principal; 2019-07-28)
DX: M17.12 Unilateral primary osteoarthritis, left knee (principal); I25.10 Atherosclerotic heart disease of native coronary artery without angina pectoris; E78.00 Pure hypercholesterolemia, unspecified; J44.9 Chronic obstructive pulmonary disease, unspecified; I50.9 Heart failure, unspecified; I11.0 Hypertensive heart disease with heart failure; D64.9 Anemia, unspecified; Z23 Encounter for immunization; Z98.52 Vasectomy status; I25.2 Old myocardial infarction; Z95.5 Presence of coronary angioplasty implant and graft; Z87.891 Personal history of nicotine dependence

== ENCOUNTER → 2019-08-27 | Outpatient (CLI) | payer OTHER, SELFPAY ==
[~2019-08-27] MED LIST changes: +ENTRESTO 97 MG1 EACH; +PERCOCET 5-3251 EACH PO; +XARELTO10 MG PO
[2019-08-27 10:52] LABS: CHOLESTEROL 129 mg/dL (<200); HDL CHOLESTEROL 40 mg/dL (>40); LDL CHOLESTEROL 75 mg/dL (<100); SERUM ASSESSMENT Clear; TC:HDL 3.2 Ratio (Not establshd); TRIGLYCERIDE 73 mg/dL (<150); VLDL 15 mg/dL (<40)
== END ==
LOC: M.MRI 08:30
PROVIDERS: Orthopaedic Surgery
DX: S83.241A Other tear of medial meniscus, current injury, right knee, initial encounter (principal); S83.281A Other tear of lateral meniscus, current injury, right knee, initial encounter; S83.511A Sprain of anterior cruciate ligament of right knee, initial encounter; S83.521A Sprain of posterior cruciate ligament of right knee, initial encounter; M23.91 Unspecified internal derangement of right knee; M17.11 Unilateral primary osteoarthritis, right knee; M25.761 Osteophyte, right knee; M25.461 Effusion, right knee; E78.2 Mixed hyperlipidemia; X58.XXXA Exposure to other specified factors, initial encounter; Y93.89 Activity, other specified; Y92.89 Other specified places as the place of occurrence of the external cause; Y99.8 Other external cause status

== ENCOUNTER 2019-09-22 06:24 | Inpatient (IN) | payer OTHER, SELFPAY ==
[2019-09-10 09:10] LABS: HEMOGLOBIN 12.8 gm/dL (14.0-18.0); MCH 32.5 pg (26.0-34.0); MCHC 33.7 g/dL (28.0-37.0); MCV 96.4 fL (80.0-100.0); MPV 7.6 fl. (7.2-11.1); RBC 3.94 mil/uL (4.50-6.00); RDW-CV 14.3 % (10.5-14.5); WBC 7.1 thou/uL (4.0-11.0)
[2019-09-10 09:17] LABS: PROTIME 10.1 Seconds (9.20-11.50)
[2019-09-10 09:20] LABS: URINE BILIRUBIN NEGATIVE (Negative); URINE BLOOD NEGATIVE (Negative); URINE CLARITY CLEAR; URINE COLOR YELLOW; URINE GLUCOSE-RANDOM NEGATIVE (Negative); URINE KETONES NEGATIVE (Negative); URINE LEUKOCYTES-REFLEX NEGATIVE (Negative); URINE NITRITE-REFLEX NEGATIVE (Negative); URINE PROTEIN 1+ (Negative); URINE SPECIFIC GRAVITY >= 1.030 (1.005-1.030); URINE UROBILINOGEN 0.2 E.U./dl (0.2-1.0)
[2019-09-10 09:29] LABS: ALBUMIN 3.9 g/dL (3.4-5.0); CALCIUM 9.1 mg/dL (8.5-10.1); CREATININE 0.8 mg/dL (0.6-1.3); POTASSIUM 4.2 mmol/L (3.5-5.1); TOTAL BILIRUBIN 0.2 mg/dL (<0.1-1.0); TOTAL PROTEIN 7.9 g/dL (6.4-8.2)
[~2019-09-22] VITALS: Ht 170.2 cm; Wt 82.6 kg
[2019-09-22 16:00] VITALS: BP 152/66
[2019-09-22 17:12] VITALS: BP 137/70
[2019-09-22 19:30] VITALS: BP 144/82
[2019-09-23 01:01] VITALS: BP 149/59
[2019-09-23 04:04] VITALS: BP 107/72
[2019-09-23 05:17] LABS: HEMATOCRIT 31.9 % (42.0-52.0); HEMOGLOBIN 10.9 gm/dL (14.0-18.0)
[2019-09-23 08:04] VITALS: BP 136/83
[2019-09-23 09:54] VITALS: BP 136/83
[2019-09-23] MEDS ORDERED: PERCOCET 5-3251 EACH PO ×2 (10:28→12:48)
[2019-09-23] MEDS ORDERED: XARELTO10 M1 PO (10:29)
[2019-09-23 12:52] VITALS: BP 136/83
[2019-09-23 15:36] VITALS: BP 147/61
--- NOTE | 2019-09-25 14:19 | OP ---
[address] [address] OPERATIVE REPORT Name: SILVER OLIVIA Room: [address] IN M.R.#: [id number] Admission: 09/22/19 Attend Phys: Ezio Sharma Discharge: 09/23/19 Date of : 52 Report #: [id number] THIS REPORT FOR: //name// CC: Carmelo Umana DATE OF SERVICE: 09/22/2019 PREOPERATIVE DIAGNOSIS: Right knee osteoarthritis. POSTOPERATIVE DIAGNOSIS: Right knee osteoarthritis. PROCEDURE: Right total knee arthroplasty. SURGEON: Han Melton II, DO INSPECTOR ALIGNING: KAYLEE Parker. ESTIMATED BLOOD LOSS: 50 mL. ANTIBIOTICS: Ancef preoperatively. DRAINS: Hemovac. COMPLICATIONS: None. CONDITION OF THE PATIENT: Stable to recovery room. IMPLANTS: Listed in operative record and progress note. BRIEF HISTORY: The patient was seen in the preoperative area, previously had a left total knee done approximately 10 weeks ago, is doing extremely well and would like to have his right total knee performed. Preoperative H and P was performed. Site was marked, questions were answered. Risks and benefits were discussed with the patient in detail about surgery. The patient wished to proceed, assuming all risks. DESCRIPTION OF PROCEDURE: The patient was taken to the operative suite and placed supine on the operative table, given appropriate anesthesia. A well-padded tourniquet applied to upper thigh, was inflated to 300 mmHg after gravity exsanguination. The operative knee was sterilely prepped and draped. Surgery began by midline incision. This was carried down to the subcutaneous tissues. A medial parapatellar arthrotomy was performed and carried down to bone. The patella was then everted and excess soft tissues were removed from around the femur. Femoral cutting block was then applied, [place] [address] OPERATIVE REPORT Name: SILVER OLIVIA Room: [address] [place] [facility]#: [id number] Admission: 09/22/19 Attend Phys: Ezio Sharma Discharge: 09/23/19 Date of : 52 Report #: [id number] rayshawn for rotational alignment, pinned in appropriate position and appropriate cuts were made. A 4-in-1 cutting block was then applied, checked for rotational alignment, pinned in appropriate position and appropriate cuts were made. The tibia was then exposed. Excess meniscus was removed. Retractor was placed on collateral ligaments. Tibial cutting block was then applied, pinned in appropriate position, checked with drop and rotational alignment and slope and appropriate cut was made. Tibial bone was removed. Tibial base plate was then applied, checked for rotational alignment with the drop rayshawn and pinned in appropriate position. The femur was then applied and box cut was reamed. This was then trialed with appropriate spacer, which showed excellent fit and fill and excellent stability of knee through all range of motion. The patella was then reamed in appropriate fashion and sized to appropriate size. Three peg holes were drilled and it was then trialed and showed excellent flexion, extension, excellent tracking and tilt of the patella within the groove. The trials were removed. Tibia was punched in appropriate fashion. Bone ends were cleansed with Pulsavac irrigation and cement was applied to final implants. These were malleted into position and held the knee in extension and compressed to allow cement to cure. After it cured, excess was removed using [place] and osteotome. Wound was then copiously irrigated and the final spacer was then malleted into position. Tourniquet was deflated. Hemostasis was maintained with electrocautery. Pain cocktail was injected. PRP gel was sprayed throughout the internal aspects of the knee. Medium Hemovac drain was applied. The capsule was closed with 2 FiberWire and #1 Vicryl in [id number] fashion. Skin was closed with 2-0 Vicryl and a running 3-0 Monocryl. Dermabond and sterile dressing applied. Saji wrap and PolarCare applied. The patient transported to recovery room in stable condition. Counts were correct throughout the procedure. <ELECTRONICALLY SIGNED> By: Han Melton II, DO 09/25/19 1419 0802 0814Han Melton II, DO /nt
== END 2019-09-23 17:56 | disposition home health service (06) | DRG 470 ==
LOC: M.PRE 06:24 → M.TBA 10:34 → M.ORTHSURG 10:34 → M.PRE 13:01 → M.ORTHSURG 16:03
PROVIDERS: Orthopaedic Surgery; ADMIT Internal Medicine
PROC: 0SRC0J9 Replacement of Right Knee Joint with Synthetic Substitute, Cemented, Open Approach (ICD-10-PCS; principal; 2019-09-22)
DX: M17.11 Unilateral primary osteoarthritis, right knee (principal); I50.22 Chronic systolic (congestive) heart failure; I42.9 Cardiomyopathy, unspecified; E78.5 Hyperlipidemia, unspecified; I25.10 Atherosclerotic heart disease of native coronary artery without angina pectoris; E78.00 Pure hypercholesterolemia, unspecified; J44.9 Chronic obstructive pulmonary disease, unspecified; E11.9 Type 2 diabetes mellitus without complications; Z96.652 Presence of left artificial knee joint; I11.0 Hypertensive heart disease with heart failure; K21.9 Gastro-esophageal reflux disease without esophagitis; N40.0 Benign prostatic hyperplasia without lower urinary tract symptoms; F41.9 Anxiety disorder, unspecified; F32.9 Major depressive disorder, single episode, unspecified; Z72.89 Other problems related to lifestyle; Z87.891 Personal history of nicotine dependence; Z79.82 Long term (current) use of aspirin; Z79.899 Other long term (current) drug therapy; Z95.5 Presence of coronary angioplasty implant and graft; I25.2 Old myocardial infarction; Z98.52 Vasectomy status; G89.4 Chronic pain syndrome

== ENCOUNTER → 2020-05-30 | Outpatient (CLI) | payer MEDICARE ==
[~2020-05-30] MED LIST changes: +XARELTO10 M1 PO
--- NOTE | 2020-06-01 16:53 | 24HR ---
[place] [address] HOLTER MONITOR REPORT Name: SILVER OLIVIA Room: [facility]#: [id number] Admission: 05/30/20 Attend Phys: Sly Jennings, Discharge: Date of : 52 Date of Service: 06/01/20 1047 Report #: [id number] THIS REPORT FOR: cc: Carmelo Canales MD, Anthony MD Blick,Marvin Hanley MD [facility] ~ [facility] Test Date: 2020-06-01 Test Time: 10:47:20 Pat Name: SILVER OLIVIA Department: Room: Gender: M Crisis Nurse: : 1950 Requested By: Sly Jennings Order Number: [id number] Reading MD: Marvin Layne Interpretive Statements 1. sinus bradycardia with sinus rhythm 2. frequent PVC's 3. occassional PAC's 4. symptoms in diary did not correlate with any arrhythmias Electronically Signed On 06-01-2020 16:53:02 CDT by Marvin Layne [email or web address] <ELECTRONICALLY SIGNED> By: Marvin Layne MD, [facility] 06/01/20 1653 1047 1047 Marvin Layne MD, [facility] /EPI
== END ==
LOC: M.CRD 10:00
PROVIDERS: ATTEND Internal Medicine Cardiovascular Disease
DX: R00.1 Bradycardia, unspecified (principal); R06.02 Shortness of breath; I25.10 Atherosclerotic heart disease of native coronary artery without angina pectoris